=== PATIENT | female | born 2000 | race Hispanic/Latino ===

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

== ENCOUNTER 2020-03-19 17:00 | Emergency (ER) | payer OTHER ==
[~2020-03-19] VITALS: Ht 152.4 cm; Wt 66.6 kg
[2020-03-19] MEDS ORDERED: IBUPROFEN 800 MG TAB PO ONE (18:30)
--- NOTE | 2020-03-19 19:14 | REP ---
INDICATION: staple to middle finger. COMPARISON: None. TECHNIQUE: Four views FINDINGS: There is a metallic staple into the distal pad of the distal phalanx of the 3rd digit. One proximal arm perpendicular to the long axis of the bone is at the PIP joint articular margin but not definitely in the joint. The distal perpendicular arm of the stable cannot be seen off the distal tuft and may be partially embedded. No other findings. IMPRESSION: Metallic staple in the distal pad of the 3rd finger at the distal phalanx. The proximal arm adjacent but not definitely in the DIP joint while the distal arm appears to likely be embedded within the distal tuft. <Electronically signed by Michael Gold > 03/19/201909
[2020-03-19 19:18] VITALS: BP 139/59
== END 2020-03-19 19:31 | disposition home or self-care (01) ==
LOC: M ED 17:00
DX: S61.242A Puncture wound with foreign body of right middle finger without damage to nail, initial encounter (principal); Y92.9 Unspecified place or not applicable; Y93.9 Activity, unspecified; Y99.9 Unspecified external cause status

== ENCOUNTER 2021-01-29 08:10 | Emergency (ER) | payer OTHER ==
[~2021-01-29] VITALS: Ht 162.6 cm; Wt 62.2 kg
--- NOTE | 2021-01-29 09:12 | REP ---
INDICATION: 35 lbs weight fell on head. COMPARISON: None. TECHNIQUE: Helical scanning is acquired. 5 mm axial images were reformatted. Coronal MPR images were generated. FINDINGS: Bone window settings demonstrate an intact bony calvarium. There is no evidence of skull fracture or incidental bony calvarial lesion. The visualized paranasal sinuses appear clear. No intraorbital abnormality is seen. On soft tissue window setting images; the lateral, third, and fourth ventricles are normal in size and position. Tapia-white differentiation pattern is normal above and below the tentorium. There are is no evidence of intracranial hemorrhage. No mass, edema, infarction, or midline shift is seen. No extra-axial fluid collection is appreciated. There is a very small area of scalp swelling at the vertex just to the right of midline. IMPRESSION: Small area of scalp swelling at the vertex. No skull fracture or intracranial injury. Otherwise normal head CT. <Electronically signed by Kevin Gates > 01/29/21 0917
--- NOTE | 2021-01-29 09:13 | REP ---
INDICATION: 35 lbs weight fell on head. COMPARISON: None. TECHNIQUE: Helical scanning is acquired and overlapping 2 mm high resolution axial images were generated and reviewed at bone and soft tissue window settings. Coronal and sagittal multiplanar re-formations images are generated. FINDINGS: There is no evidence of cervical spine element fracture. No skull base fracture is seen. Cervical vertebral body heights are preserved. Alignment is normal. Facet joints are normally aligned bilaterally at each cervical level on multiplanar re-formations images. There is no evidence of intraspinal or paraspinal hematoma. No extra vertebral abnormality is seen. IMPRESSION: Negative CT study of the cervical spine without contrast. No fracture seen. <Electronically signed by Kevin Gates > 01/29/21 4719
[2021-01-29] MEDS ORDERED: ACETAMINOPHEN TAB 650MG DOSE (2X325MG) PO ONE (10:30)
[2021-01-29 11:23] VITALS: BP 120/75
== END 2021-01-29 11:22 | disposition home or self-care (01) ==
LOC: M ED 08:10
DX: S01.01XA Laceration without foreign body of scalp, initial encounter (principal); W22.8XXA Striking against or struck by other objects, initial encounter; Y99.1 Military activity; Y92.9 Unspecified place or not applicable; Y93.9 Activity, unspecified

== ENCOUNTER 2022-03-20 12:19 | Emergency (ER) | payer OTHER ==
[~2022-03-20] VITALS: Ht 160 cm; Wt 66.9 kg
[2022-03-20 14:08] LABS: BASO # 0.1 10^3/uL (0.0-0.2); BASO % 0.8 % (0.0-1.0); EOS % 0.1 % (0.0-3.0); HEMATOCRIT 40.8 % (36.0-47.0); HEMOGLOBIN 13.2 g/dl (12.0-15.5); LYMPH # 1.2 10^3/uL (1.5-5.0); LYMPH % 13.5 % (24.0-44.0); MEAN CORPUSCULAR HEMOGLOBIN 29.2 pg (27.0-33.0); MEAN CORPUSCULAR HGB CONC 32.4 g/dl (32.0-36.5); MEAN CORPUSCULAR VOLUME 90.3 fl (80.0-96.0); MONO # 0.1 10^3/uL (0.0-0.8); MONO % 1.6 % (2.0-8.0); NEUTROPHILS # 7.5 10^3/uL (1.5-8.5); NEUTROPHILS % 83.7 % (36.0-66.0); PLATELET COUNT, AUTOMATED 290 10^3/uL (150-450); RED BLOOD COUNT 4.52 10^6/uL (4.00-5.40); WHITE BLOOD COUNT 8.9 10^3/uL (4.0-10.0)
[2022-03-20 14:34] LABS: HCG, SERUM QUALITATIVE NEGATIVE (NEGATIVE)
[2022-03-20 14:41] LABS: ALBUMIN 4.1 GM/DL (3.2-5.2); ALT/SGPT 33 U/L (12-78); BILIRUBIN,DIRECT 0.1 MG/DL (0.0-0.2); BILIRUBIN,TOTAL 0.3 MG/DL (0.2-1.0); BLOOD UREA NITROGEN 11 MG/DL (7-18); CALCIUM LEVEL 9.4 MG/DL (8.5-10.1); CARBON DIOXIDE LEVEL 25 MEQ/L (21-32); CHLORIDE LEVEL 106 MEQ/L (98-107); CREATININE FOR GFR 0.87 MG/DL (0.55-1.30); GLOMERULAR FILTRATION RATE > 60.0 (>60); GLUCOSE, FASTING 129 MG/DL (70-100); LIPASE 81 U/L (73-393); POTASSIUM SERUM 4.1 MEQ/L (3.5-5.1); SODIUM LEVEL 137 MEQ/L (136-145)
[2022-03-20] MEDS ORDERED: KETOROLAC 30 MG/ML 1ML VIAL IV ONE (15:10)
[2022-03-20] MEDS ORDERED: NS 1,000 ML IV ONE (15:10)
[2022-03-20] MEDS ORDERED: ONDANSETRON 4MG 2ML VIAL IV ONE (15:10)
[2022-03-20] MEDS ORDERED: ISOVUE-370 76% 100ML VIAL As Ordered ONE (15:27)
[2022-03-20] MEDS ORDERED: KETO10TAB PO (17:14)
[2022-03-20] MEDS ORDERED: ONDA4TAB6 PO (17:14)
[2022-03-20 17:23] VITALS: BP 107/57
== END 2022-03-20 17:36 | disposition home or self-care (01) ==
LOC: M ED 12:19
DX: R10.9 Unspecified abdominal pain (principal); R11.2 Nausea with vomiting, unspecified; I25.2 Old myocardial infarction; F12.10 Cannabis abuse, uncomplicated; F10.10 Alcohol abuse, uncomplicated
CPT/HCPCS: 74177; 80048; 80076; 83690; 84703; 85025; 87635; 93005; 96361; 96374; 99284; J1885; J2405